=== PATIENT | female | born 1960 | race Caucasian/White ===

== ENCOUNTER 2018-05-23 07:40 | Day surgery (SDC) | payer BC, SELFPAY ==
--- NOTE | 2018-05-23 06:44 | W.COLOREPORT ---
Date of service: 05/23/18 Time of Service: 09:02 Colonoscopy Report Date of procedure: 05/23/18 Pre-op diagnosis general: Hx of polyps Post-op diagnosis procedure note: other (Polyps) Procedure: Colonoscopy with polypectomy by cold forceps Surgeon: Hawa Elise Anesthesia proc note operative: MAC (Hector Sloan CRNA / ASA 2) Estimated blood loss (mL): 3 Pathology: other (sigmoid polyp x1, rectal polyp x 3) Complications: None Disposition: same day Indications: Mrs. Jolene Abdullahi is a pleasant 58 year old female who was seen in the office for another colonoscopy. She was noted to have a adenomatous polyp in 2012. Risks, benefits, complications were reviewed with her and she wished to proceed. No guarantees were given or implied. Prep: Miralax/Dulcolax Procedure Start Time: : Procedure End Time: Retraction Time: 18 minutes Findings: 1. one sigmoid polyp 2. 3 rectal polyps Procedure Description: After informed consent was obtained the patient was taken to the procedure room and placed in a left decubitous position. Monitors were applied and a time out was done. The patients name, date of , procedure, allergies to medications and metal in their body was reviewed. The patient was then sedated. Once sedated and comfortable a rectal exam was done. External exam was normal. Internal exam revealed a normal sphincter tone and no palpable masses. The scope was then introduced and retro-flexed. No internal hemorrhoids were identified. The scope was then advanced to the cecum without difficulty. The TI and appendiceal orifice were identified. The prep was adequate. The scope was then slowly retracted over 18 minutes back into the rectum. One sigmoid polyp and 3 rectal polyps were removed with cold forceps. The scope was removed and the patient was woken up and taken back to Same day surgery in stable condition. The patient tolerated the procedure well and there were no immediate complications. Follow up: The patient should follow up in 5 years unless they develop changes in bowel habits or other new gastrointestinal complaints.
--- NOTE | 2018-05-23 06:46 | PDOC.DSDIS_ITS ---
Discharge Plan Disposition Patient Disposition: HOME Condition: Good Discharge Details Reason For Visit: SCREENING Attending Provider: Hawa Elise Primary Care Provider: Yandy Miller Home Meds and New Rx's Prescriptions: Continue dextroamphetamine-amphetamine [Adderall] 30 MG tablet 30 mg PO DAILY RF: 0 bupropion HCl 300 MG tablet extended release 24 hr 300 mg PO DAILY RF: 0 calcium carbonate [Calci-Chew] 500 MG tablet,chewable 2 tab PO DAILY RF: 0 Discharge Instructions Instructions: Colonoscopy (DC), Colorectal Polyps (DC) Additional Instructions: Findings: small polyps Follow up: 5 years New Medications: none Please call if you develop: Fevers >101.5 Nausea or Vomiting Abdominal pain that is not transient 1. Because there will be medication in your system for the next 24 hours, you may feel a little sleepy. Your coordination will be affected. Therefore: a. Do not drive or operate dangerous equipment for 24 hours. b. Do not drink alcohol beverages for 24 hours (not even beer). c. Plan to go home and rest for the day. 2. Generally there are no restrictions on your activity after a day or so has gone by, but you may feel a bit fatigued for a few days. 3 After you arrive home you may have a light meal and return to a normal diet as you can tolerate it without feeling sick to your stomach. 4. After surgery, you may feel pain or discomfort. This should be only transient , but if it persists please contact your doctor. 5. If there are any questions regarding the findings of your procedure, please feel free to contact your doctor. 6. If you are unable to contact your doctor with a problem, contact the hospital at [phone]. 7. Continue all your regular medications unless directed otherwise. I understand the above instructions and have no questions. Signature of Patient or Responsible Adult Escort Date/Time Name of Responsible Adult Escort Signature of Nurse Date/Time Activity:: Activity as Tolerated Diet:: As Tolerated Discharge Orders Discharge Orders: Discharge Order (Routine); Ordered 05/23/18 Ordered By: Hawa Elise DS: Diagnosis Discharge Diagnosis (1) Colon polyps: Status: Acute (2) S/P colonoscopy: Status: Acute
[2018-05-23 08:03] VITALS: BP 114/77; PULSE 80; RESP 18; TEMP 36.7; O2SAT 99
[2018-05-23] MEDS: Lactated Ringers 1,000 ML 80 ML IV (08:18)
--- NOTE | 2018-05-23 09:22 | BOWEL_PTH ---
PATIENT: Zakia Teran LOC: [facility] U#:[id number] AGE/SX: 58/F ROOM: RE05/23/[address]: Hawa Elise MD : [id number] BED: DIS: 05/23/2018 SPEC #: [id number] RECD: 05/23/18 12:47 STATUS: CHERIE REQ #: [id number] ROBERT: 05/23/18 09:[address]: Hawa Elise DEPT: Surgical Specimen RECD BY: Wanda Ross ENTERED: 05/23/18 12:48 SP TYPE: Bowel OTHR DR: Yandy Miller Tissues: 1 - BIOPSY BOWEL 2 - BIOPSY BOWEL Procedures: GROSS AND MICRO LEVEL 4 Comments: [id number]
[2018-05-23 10:00] VITALS: BP 102/56; PULSE 65; RESP 16; TEMP 36; O2SAT 98
== END 2018-05-23 10:42 | disposition home or self-care (01) ==
LOC: SUR 07:41
PROVIDERS: PCP Family Medicine; Visit Provider Surgery
PROC: 0DJD8ZZ Inspection of Lower Intestinal Tract, Via Natural or Artificial Opening Endoscopic (ICD-10-PCS; CPT 45378; principal; 2018-05-23 09:00)
DX: Z12.11 Encounter for screening for malignant neoplasm of colon (principal); K63.5 Polyp of colon; K62.1 Rectal polyp; Z86.010 Personal history of colon polyps; K21.9 Gastro-esophageal reflux disease without esophagitis
CPT/HCPCS: 45380; 88305

== ENCOUNTER 2018-10-31 02:41 | Outpatient (CLI) | payer BC, SELFPAY ==
[2018-10-31 09:00] LABS: Glucose 107 mg/dL (70-100)
== END 2018-10-31 03:01 ==
PROVIDERS: PCP Family Medicine; Visit Provider Family Medicine
DX: Z00.00 Encounter for general adult medical examination without abnormal findings (principal); Z13.1 Encounter for screening for diabetes mellitus
CPT/HCPCS: 36415; 82947

== ENCOUNTER 2018-12-25 15:58 | Emergency (ER) | payer BC, SELFPAY ==
[2018-12-25 16:00] VITALS: BP 120/89; PULSE 108; RESP 16; TEMP 36.2; O2SAT 98
--- NOTE | 2018-12-25 16:17 | W.ED.GENAD ---
Discharge Plan Disposition Patient Disposition: HOME Discharge Details Chief Complaint: EyeProblem Clinical Impression: Acute conjunctivitis, left eye Primary Care Provider: Yandy Miller ED Provider: Anival Parekh Home Meds and New Rx's Prescriptions: New levofloxacin 0.5 % drops See Rx Instructions .ROUTE .COMPLEX Qty: 5 RF: 0 Continued dextroamphetamine-amphetamine [Adderall] 30 MG tablet 30 mg PO DAILY RF: 0 bupropion HCl 300 MG tablet extended release 24 hr 300 mg PO DAILY RF: 0 Discharge Instructions Instructions: Conjunctivitis (ED) Additional Instructions: Please follow-up with an auth specialist. Return to the ER for any worsening or new concerning symptoms. Stand Alone Forms: Work Release Referrals: [facility] [Outside] Johnson Washington MD [ [facility] STAFF PHYSICIAN] - Medical Decision Making 58yo f here with irritation left eye progressive today. No trauma. No visual changes - patient has removed contact lens but noted no visual change prior to removal. Patient has had clear discharge. Recent exposure to grandson with cold symptoms. EOM intact and without pain. Pupils equal and reactive. Exam not consistent with acute angle glaucoma. Tetracaine applied and discomfort improved. I examined with fluorescein stain under santos lamp and no corneal abrasion. Suspect conjunctivitis. Plan to treat Levaquin eyedrop. Patient advised to not use contact until symptoms have completely resolved and seen by ophthalmology. Patient was encouraged to call her scroll machine operator or alternative today or tomorrow to arrange timely outpatient follow-up. Usual and customary discharge instructions were provided and reviewed with the patient. Patient verbalized understanding of discharge instructions. HPI General Mode of arrival: ambulatory. Date/Time Provider Initiated Documentation: 12/25/18 16:07. Limitations to Documentation: no limitations. Information obtained by: patient. History of Present Illness 58 year old F presents to the emergency department with the chief complaint of left eye discomfort, described as moderate, Quality is described as other (irritation), Patient reports no radiation. Patient started experiencing this hour(s) (8) and it has been constant. No relieving factors improve symptom(s), No exacerbating factors reported . Patient notes no other symptoms.. Patient did receive the following treatments prior to arrival, none Related Data Home Medications Medication Instructions Recorded Confirmed bupropion HCl 300 mg PO DAILY tab-cap 12/19/12 12/25/18 dextroamphetamine-amphetamine 30 mg PO DAILY tab-cap 12/19/12 12/25/18 [Adderall] levofloxacin See Rx Instructions .ROUTE 12/25/18 .COMPLEX #5 ml Previous Rx's Medication Instructions Recorded levofloxacin See Rx Instructions .ROUTE 12/25/18 .COMPLEX #5 ml Allergies Allergy/AdvReac Type Severity Reaction Status Date / Time ENVIRONMENTAL Allergy Mild Uncoded 05/23/18 08:01 General Stated Complaint: EyeProblem LITA: 4 Review of Systems Eyes Denies blurry vision, Denies change in vision, Reports eye discharge (clear), Denies floaters, Reports irritation, Denies itchy eyes, Denies loss of vision, Denies eye pain, Reports requires corrective lenses (left eye), Denies seeing flashes, Denies photophobia and Denies spots in vision ENT Denies sinus pain, Denies sinus pressure, Denies sore throat and Denies throat swelling Respiratory Denies cough Neurologic Denies loss of vision Allergic/Immunologic Denies itchy eyes and Denies throat swelling PFSH Medical History Colon polyps (Acute) Chronic constipation (Acute) Irritable bowel (Chronic) Adenomatous polyp of colon (Resolved 05/22/13) Anxiety Asthma Attention deficit hyperactivity disorder Depression GERD Gallbladder calculus Surgical History S/P colonoscopy (Acute ~05/23/18) H/O colonoscopy (Chronic 05/22/13) section Cholecystectomy Detatched retina/catarract Ligation of fallopian tube Nadya Fundoplication Open Carpal Tunnel release Family History Other Diabetes Hyperlipidemia Personal history of malignant neoplasm Social History Smoking/Tobacco Use Status: Never Alcohol Intake: current Alcohol Intake frequency: a few times a week Alcohol type: wine Drug use: Never Substance use type: does not use Do you feel safe at home: Yes Do you feel safe in your relationship?: Yes Exam Const General: cooperative, no acute distress and well developed Orientation: alert and awake Limitations: mental status not altered HENMT Head: normal to inspection and normocephalic General nose exam: external nose normal and no nasal discharge noted Face and sinus: face symmetric Mouth: moist mucous membranes Throat: posterior oropharynx normal, uvula midline and no uvular edema Eyes Alignment and Position: alignment normal Periorbital: periorbital findings normal Eyelids: eyelids normal Conjunctivae: conjunctival abnormality left conjunctival injection diffuse and discharge mucoid Cornea: corneas normal and fluorescein used Pupils: PERRL, normal by confrontation and accommodation normal EOM: EOM intact bilaterally Direct ophthalmoscopy: no papilledema and retinal abnormality on the left retinal scars; no retinal edema, no retinal hemorrhages, no retinal detachment and no retinal exudates Skin General skin exam: dry skin Rashes: no rashes (face) Other: warm Neuro General: alert and awake Course Vital Signs Temperature 36.2 C L 12/25/18 16:00 Pulse 108 H 12/25/18 16:00 Respiratory Rate 16 12/25/18 16:00 Blood Pressure 120/89 12/25/18 16:00 Pulse Oximetry 98 12/25/18 16:00 Temperature 36.2 C L 12/25/18 16:00 Temperature Source Skin 12/25/18 16:00 Pulse 108 H 12/25/18 16:00 Respiratory Rate 16 12/25/18 16:00 Respiratory Effort Non-Labored 12/25/18 16:05 Blood Pressure 120/89 12/25/18 16:00 Blood Pressure Position Sitting 12/25/18 16:00 Pulse Oximetry 98 12/25/18 16:00 Pain Level 8 12/25/18 16:00
--- NOTE | 2018-12-25 16:20 | ED.GENADUL_ITS ---
Discharge Plan Disposition Patient Disposition: HOME Discharge Details Chief Complaint: EyeProblem Clinical Impression: Acute conjunctivitis, left eye Primary Care Provider: Yandy Miller ED Provider: Anival Parekh Home Meds and New Rx's Prescriptions: New levofloxacin 0.5 % drops See Rx Instructions .ROUTE .COMPLEX Qty: 5 RF: 0 Continued dextroamphetamine-amphetamine [Adderall] 30 MG tablet 30 mg PO DAILY RF: 0 bupropion HCl 300 MG tablet extended release 24 hr 300 mg PO DAILY RF: 0 Discharge Instructions Instructions: Conjunctivitis (ED) Additional Instructions: Please follow-up with an retirement plan specialist. Return to the ER for any worsening or new concerning symptoms. Stand Alone Forms: Work Release Referrals: [facility] [Outside] Johnson Washington MD [ [facility] STAFF PHYSICIAN] - Medical Decision Making 58yo f here with irritation left eye progressive today. No trauma. No visual changes - patient has removed contact lens but noted no visual change prior to removal. Patient has had clear discharge. Recent exposure to grandson with cold symptoms. EOM intact and without pain. Pupils equal and reactive. Exam not consistent with acute angle glaucoma. Tetracaine applied and discomfort improved. I examined with fluorescein stain under santos lamp and no corneal abrasion. Suspect conjunctivitis. Plan to treat Levaquin eyedrop. Patient advised to not use contact until symptoms have completely resolved and seen by ophthalmology. Patient was encouraged to call her edger liner or alternative today or tomorrow to arrange timely outpatient follow-up. Usual and customary discharge instructions were provided and reviewed with the patient. Patient verbalized understanding of discharge instructions. HPI General Mode of arrival: ambulatory . Date/Time Provider Initiated Documentation: 12/25/18 16:07 . Limitations to Documentation: no limitations . Information obtained by: patient . History of Present Illness 58 year old F presents to the emergency department with the chief complaint of left eye discomfort, described as moderate, Quality is described as other (irritation), Patient reports no radiation. Patient started experiencing this hour(s) (8) and it has been constant. No relieving factors improve symptom(s), No exacerbating factors reported . Patient notes no other symptoms.. Patient did receive the following treatments prior to arrival, none Related Data Home Medications Medication Instructions Recorded Confirmed bupropion HCl 300 mg PO DAILY tab-cap 12/19/12 12/25/18 dextroamphetamine-amphetamine 30 mg PO DAILY tab-cap 12/19/12 12/25/18 [Adderall] levofloxacin See Rx Instructions .ROUTE 12/25/18 .COMPLEX #5 ml Previous Rx's Medication Instructions Recorded levofloxacin See Rx Instructions .ROUTE 12/25/18 .COMPLEX #5 ml Allergies Allergy/AdvReac Type Severity Reaction Status Date / Time ENVIRONMENTAL Allergy Mild Uncoded 05/23/18 08:01 General Stated Complaint: EyeProblem LITA: 4 Review of Systems Eyes Denies blurry vision, Denies change in vision, Reports eye discharge (clear), Denies floaters, Reports irritation, Denies itchy eyes, Denies loss of vision, Denies eye pain, Reports requires corrective lenses (left eye), Denies seeing flashes, Denies photophobia and Denies spots in vision ENT Denies sinus pain, Denies sinus pressure, Denies sore throat and Denies throat swelling Respiratory Denies cough Neurologic Denies loss of vision Allergic/Immunologic Denies itchy eyes and Denies throat swelling PFSH Medical History Colon polyps (Acute) Chronic constipation (Acute) Irritable bowel (Chronic) Adenomatous polyp of colon (Resolved 05/22/13) Anxiety Asthma Attention deficit hyperactivity disorder Depression GERD Gallbladder calculus Surgical History S/P colonoscopy (Acute ~05/23/18) H/O colonoscopy (Chronic 05/22/13) section Cholecystectomy Detatched retina/catarract Ligation of fallopian tube Nadya Fundoplication Open Carpal Tunnel release Family History Other Diabetes Hyperlipidemia Personal history of malignant neoplasm Social History Smoking/Tobacco Use Status: Never Alcohol Intake: current Alcohol Intake frequency: a few times a week Alcohol type: wine Drug use: Never Substance use type: does not use Do you feel safe at home: Yes Do you feel safe in your relationship?: Yes Exam Const General: cooperative, no acute distress and well developed Orientation: alert and awake Limitations: mental status not altered HENMT Head: normal to inspection and normocephalic General nose exam: external nose normal and no nasal discharge noted Face and sinus: face symmetric Mouth: moist mucous membranes Throat: posterior oropharynx normal, uvula midline and no uvular edema Eyes Alignment and Position: alignment normal Periorbital: periorbital findings normal Eyelids: eyelids normal Conjunctivae: conjunctival abnormality left conjunctival injection diffuse and discharge mucoid Cornea: corneas normal and fluorescein used Pupils: PERRL, normal by confrontation and accommodation normal EOM: EOM intact bilaterally Direct ophthalmoscopy: no papilledema and retinal abnormality on the left retinal scars; no retinal edema, no retinal hemorrhages, no retinal detachment and no retinal exudates Skin General skin exam: dry skin Rashes: no rashes (face) Other: warm Neuro General: alert and awake Course Vital Signs Temperature 36.2 C L 12/25/18 16:00 Pulse 108 H 12/25/18 16:00 Respiratory Rate 16 12/25/18 16:00 Blood Pressure 120/89 12/25/18 16:00 Pulse Oximetry 98 12/25/18 16:00 Temperature 36.2 C L 12/25/18 16:00 Temperature Source Skin 12/25/18 16:00 Pulse 108 H 12/25/18 16:00 Respiratory Rate 16 12/25/18 16:00 Respiratory Effort Non-Labored 12/25/18 16:05 Blood Pressure 120/89 12/25/18 16:00 Blood Pressure Position Sitting 12/25/18 16:00 Pulse Oximetry 98 12/25/18 16:00 Pain Level 8 12/25/18 16:00
[2018-12-25] MEDS: Fluorescein STRIPS 100/BOX 1 MG OP (16:39)
[2018-12-25] MEDS: Tetracaine 0.5% 4 ML BTL OP (16:40)
== END 2018-12-25 16:41 | disposition home or self-care (01) ==
PROVIDERS: Emergency Provider Student in an Organized Health Care Education/Training Program; PCP Family Medicine
DX: H10.32 Unspecified acute conjunctivitis, left eye (principal)
CPT/HCPCS: 99283

== ENCOUNTER 2019-01-02 05:32 | Emergency (ER) | payer BC, SELFPAY ==
[2019-01-02 05:33] VITALS: BP 146/76; PULSE 105; RESP 18; TEMP 36.6; O2SAT 98
--- NOTE | 2019-01-02 05:47 | W.ED.GENAD ---
Discharge Plan Disposition Patient Disposition: HOME Condition: Good Discharge Details Chief Complaint: EyeProblem Clinical Impression: Conjunctivitis Primary Care Provider: Yandy Miller ED Provider: Roly Toussaint Home Meds and New Rx's Prescriptions: No Action dextroamphetamine-amphetamine [Adderall] 30 MG tablet 30 mg PO DAILY RF: 0 bupropion HCl 300 MG tablet extended release 24 hr 300 mg PO DAILY RF: 0 Discharge Instructions Instructions: Conjunctivitis (ED) Additional Instructions: Your symptoms appear consistent with bilateral viral conjunctivitis or chemosis however the vision changes atypical. We recommend urgent follow-up with your [facility] as soon as possible, or follow-up with Dr. Leon's office today. We will be contacting Dr. Leon's office to set up a prompt appointment this morning. You will be contacted with his appointment time. In the meantime I recommend application of artificial tears 2-3 times per day. Frequent handwashing, and avoid using your contact lens. If you notice any worsening of your symptoms, or any new symptoms such as vomiting, diarrhea, fever, chills, shortness of breath, chest pain, numbness, weakness, or fainting , please return immediately to the emergency department for reevaluation. Please follow up with your primary care provider as soon as possible for reassessment and reevaluation. As always, it was a pleasure participating in your medical care today. Referrals: [facility] [OTHER] - Discharge Data Discharge Date/Time-TO BE ENTERED AT DEPARTURE: 01/02/19 05:54 Medical Decision Making This is a 58-year-old female who presents with bilateral conjunctivitis that started this morning when she woke up. She denies any recent sick contacts, trauma, new drops, or other abnormalities. She did place a new contact in her left eye 3 to 4 days ago, however she has had no issues with this new contacts since today. She denies any symptoms of pain, irritation, pressure, or achiness. She did have conjunctivitis 1 week ago, this improved over few days with saturnino quinolone drops, or spontaneously. She was seen by optometry, who felt that it was most likely viral conjunctivitis on reassessment. Today signs and symptoms appear clinically consistent with viral conjunctivitis versus chemosis. She has no historical component to suggest chemosis though. No clinical evidence of acute angle-closure glaucoma. Exam demonstrates bilateral conjunctivitis with notable watery discharge, no evidence of purulent discharge. At this time with no evidence of bacterial conjunctivitis we will hold off on antibiotics. Recommend artificial tears 2-3 times per day. We will contact Dr. Leon's office for prompt follow-up today. Patient will be contacted with an appointment time. I have extensively reviewed the treatment plan and discharge instructions with the patient. I have addressed all patient concerns at this time. The patient was made aware of what symptoms to monitor for that would warrant a return to the emergency department. Discussed the plan with the patient, they demonstrate verbal understanding and agreement with our assessment and plan at this time. HPI General Date/Time Provider Initiated Documentation: 01/02/19 05:46. HPI Narrative: This is a 58-year-old female with a past medical history of a retinal detachment in left eye, and a contact lens use in that eye. She presents today for feeling a film over both her eyes this morning at 3 AM when she woke up. She denies any irritation in her eyes, pain in her eyes, gritty sensation, new eyedrops, change in facial washes, or changes in contacts. Of note 1 week ago she was seen with similar symptoms. She was started on Cipro drops, her symptoms resolved shortly thereafter. 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 She had stopped wearing her contact lenses at that time, and then started a new contact lens 3 days ago. She had no problems until this morning when she awoke. She does admit to a sensation of a film over her vision, which she states is atypical for her. She denies any eye pain, pain with movement of her eye, headache, trauma, or other complaints. She denies any other modifying factors. She denies any other sick contacts with similar symptoms. Related Data Home Medications Medication Instructions Recorded Confirmed bupropion HCl 300 mg PO DAILY tab-cap 12/19/12 01/02/19 dextroamphetamine-amphetamine 30 mg PO DAILY tab-cap 12/19/12 01/02/19 [Adderall] Allergies Allergy/AdvReac Type Severity Reaction Status Date / Time ENVIRONMENTAL Allergy Mild Uncoded 01/02/19 05:35 General Stated Complaint: EyeProblem LITA: 4 Review of Systems Review of Systems All systems reviewed & are unremarkable except as noted in HPI and below PFSH Medical History Colon polyps (Acute) Chronic constipation (Acute) Irritable bowel (Chronic) Adenomatous polyp of colon (Resolved 05/22/13) Anxiety Asthma Attention deficit hyperactivity disorder Depression GERD Gallbladder calculus Surgical History S/P colonoscopy (Acute ~05/23/18) H/O colonoscopy (Chronic 05/22/13) section Cholecystectomy Detatched retina/catarract Ligation of fallopian tube Nadya Fundoplication Open Carpal Tunnel release Family History Other Diabetes Hyperlipidemia Personal history of malignant neoplasm Social History Smoking/Tobacco Use Status: Never Alcohol Intake: current Alcohol Intake frequency: a few times a week Alcohol type: wine Drug use: Never Substance use type: does not use Do you feel safe at home: Yes Do you feel safe in your relationship?: Yes Exam Narrative Exam Narrative: 1.Const: Well-nourished, Well-developed, appearing stated age 2.Eyes: Bilateral eyes: EOMI, PERRL, Peripheral vision intact. No nystagmus. Fundoscopic exam shows normal optic discs and normal vasculature. No evidence of retinal hemorrhage. no external signs of preseptal cellulitis, no redness around the eye, no proptosis. No hyphema, no signs of trauma around the eye, no periorbital emphysema. Bilateral conjunctivitis and conjunctival injection. No conjunctival hemorrhage. Vision in the left eye is worse than 2069 which she states is her baseline, vision in the right eye is 20/70 which she states is atypical. No pain with movement of the eye. Notable runny watery discharge, no evidence of purulent crusty discharge. 3.ENT: Atraumatic external nose and ears. Moist MM. Neck: Symmetric, trachea midline, No thyromegaly. 4.CVS: +S1/S2, No murmurs or gallops. Peripheral pulses 2+ and equal in all extremities. Brisk capillary refill in all extremities. 5.RESP: Unlabored respiratory effort. Clear to auscultation bilaterally. No wheezes rales or rhonchi 6.GI: Soft, Nontender/Nondistended, No hepatosplenomegaly. No guarding or rebound. 7.MSK: Normocephalic/Atraumatic, Extremities w/o deformity or ttp No cyanosis or clubbing, Normal movement of all extremities 8.Skin: Warm, Dry. No rashes or lesions. 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 Sensation grossly intact, no focal neurologic deficits. 10.Psych: (AAO) x3. Appropriate mood and affect Course Vital Signs Temperature 36.6 C 01/02/19 05:33 Pulse 105 H 01/02/19 05:33 Respiratory Rate 18 01/02/19 05:33 Blood Pressure 146/76 H 01/02/19 05:33 Pulse Oximetry 98 01/02/19 05:33 Temperature 36.6 C 01/02/19 05:33 Temperature Source Skin 01/02/19 05:33 Pulse 105 H 01/02/19 05:33 Respiratory Rate 18 01/02/19 05:33 Respiratory Effort Non-Labored 01/02/19 05:36 Blood Pressure 146/76 H 01/02/19 05:33 Blood Pressure Position Sitting 01/02/19 05:33 Pulse Oximetry 98 01/02/19 05:33 Oxygen Delivery Method Room Air 01/02/19 05:33 Oxygen Flow Rate 0 01/02/19 05:33 Pain Level 0 01/02/19 05:33
--- NOTE | 2019-01-02 08:16 | NUR.NOTE ---
Nursing Note: [facility] will see the patient today, either in [facility] or [place]. Pratima Forbes Fax [phone]
== END 2019-01-02 05:54 | disposition home or self-care (01) ==
PROVIDERS: Emergency Provider Student in an Organized Health Care Education/Training Program; PCP Family Medicine
DX: H10.33 Unspecified acute conjunctivitis, bilateral (principal)
CPT/HCPCS: 99282

== ENCOUNTER 2019-03-06 00:13 | Outpatient (CLI) | payer BC, SELFPAY ==
--- NOTE | 2019-03-06 11:45 | DI.MAMMO_ITS ---
SYMPTOM/DIAGNOSIS: SCREENING, Z12.31 MAMMOGRAMS: Mammograms were interpreted according to the usual protocol including computer analysis with CAD system, tomosynthesis and C view imaging. The breasts are of moderate density with fairly symmetrical distribution of fibroglandular tissue. No dominant mass or clumped microcalcification is identified in either breast. The current examination is compared with previous examinations including 12/2016 and there has been no gross interval change in appearance in comparison with the previous studies. CONCLUSION: No specific evidence of malignancy at this time. Routine screening examinations are suggested at yearly intervals due to the family history of breast carcinoma. Category 1. Breast density, Category B. MQSA ASSESSMENT OF FINDINGS: Negative. Category 1. Patient will receive a letter notifying them of these results. BI-RADS category B. There are scattered areas of fibroglandular density.
== END 2019-03-06 00:33 ==
PROVIDERS: PCP Family Medicine; Visit Provider Family Medicine
DX: Z12.31 Encounter for screening mammogram for malignant neoplasm of breast (principal); Z80.3 Family history of malignant neoplasm of breast
CPT/HCPCS: 77063; 77067

== ENCOUNTER 2019-11-27 08:38 | Outpatient (REF) | payer BC, SELFPAY ==
[2019-11-27 15:36] LABS: Hemoglobin A1C 5.5 % (3.8-5.6)
[2019-11-27 15:39] LABS: Glucose 115 mg/dL (74-106)
== END 2019-11-27 08:58 ==
LOC: NCHCN 08:38
PROVIDERS: PCP Family Medicine; Visit Provider Family Medicine
DX: R73.03 Prediabetes (principal)
CPT/HCPCS: 82947; 83036

== ENCOUNTER 2020-04-25 03:03 | Outpatient (CLI) | payer OTHER, SELFPAY ==
--- NOTE | 2020-04-25 | DI.MAMMO_ITS ---
EXAM: MG MAMMO SCREENING CLINICAL HISTORY: SCREENING,Z12.31 TECHNIQUE: Mammograms were interpreted according to the usual protocol including computer analysis w [employer] CAD system, tomosynthesis and C-view imaging. COMPARISON: FINDINGS: The breasts are of moderate density with fairly symmetrical distribution of fibroglandular tissue. N o dominant mass or clumped microcalcification is identified in either breast. The current examinatio n is compared with previous examinations including February 2019 and there has been no gross interva l change in appearance in comparison with the prior studies. IMPRESSION: No specific evidence of malignancy at this time. Routine screening examinations are suggested at yea rly intervals in this age group according to the ACS ACR guidelines. BI-RADS Category 1 - Negative Breast Density - Category B - Scattered areas of fibroglandular density
== END 2020-04-25 03:23 ==
PROVIDERS: PCP Family Medicine; Visit Provider Family Medicine
DX: Z12.31 Encounter for screening mammogram for malignant neoplasm of breast (principal)
CPT/HCPCS: 77063; 77067

== ENCOUNTER 2020-07-23 17:39 | Outpatient (REF) | payer OTHER, SELFPAY ==
[2020-07-23 19:50] LABS: HCT 42.9 % (36.0-46.0); HGB 14.1 g/dL (11.2-15.7); MCH 29.5 pg (27.0-33.0); MCHC 32.9 % (32.0-36.0); MCV 89.7 fL (80-95); MPV 11.4 fL (8.0-11.0); Platelet Count 223 10^3/uL (130-400); RBC 4.78 10^6/uL (3.93-5.22); RDW 13.2 % (11.7-14.6); RDW-SD 43.4 fL; WBC 6.28 10^3/uL (4.4-10.8)
[2020-07-23 20:54] LABS: ALT 29 U/L (14-59); AST 17 U/L (15-37); Albumin 4.4 g/dL (3.4-5.0); Alkaline Phosphatase 89 U/L (46-116); Anion Gap 10.5 mmol/L (3-11); BUN 23 mg/dL (7-18); Bilirubin, Total 0.4 mg/dL (0.2-1.0); CO2 26.5 mmol/L (21.0-32.0); Calcium 9.6 mg/dL (8.5-10.1); Chloride 102 mmol/L (98-107); Folate 11.6 ng/mL (8.6-20.0); Glucose 97 mg/dL (74-106); Potassium 4.2 mmol/L (3.5-5.1); Sodium 139 mmol/L (136-145); TSH (W/Ref FT4) 1.04 uIU/mL (0.36-3.74); Total Protein 7.1 g/dL (6.4-8.2); Vitamin B12 307 pg/mL (193-986)
== END 2020-07-23 17:59 ==
LOC: NCHCN 17:39
PROVIDERS: PCP Family Medicine; Visit Provider Family Medicine
DX: R20.2 Paresthesia of skin (principal)
CPT/HCPCS: 80053; 85027; 82607; 82746; 84443

== ENCOUNTER 2020-12-12 16:07 | Outpatient (REF) | payer OTHER, SELFPAY ==
[2020-12-12 19:28] LABS: ESR 5 mm/hr (0-30)
[2020-12-12 19:32] LABS: Calculated LDL 136 mg/dL (<100); Cholesterol 235 mg/dL (<200); HDL Cholesterol 93 mg/dL (40-60); Triglyceride 32 mg/dL (<150)
[2020-12-12 20:01] LABS: C-Reactive Protein 0.05 mg/dL (0.0-0.3); Creatine Kinase 114 U/L (26-192)
== END 2020-12-12 16:08 | disposition home or self-care (01) ==
LOC: NCHCN 16:07
PROVIDERS: PCP Family Medicine; Visit Provider Family Medicine
DX: M79.10 Myalgia, unspecified site (principal); R20.2 Paresthesia of skin; E78.89 Other lipoprotein metabolism disorders
CPT/HCPCS: 80061; 82550; 85652; 86140

== ENCOUNTER 2021-05-01 02:30 | Outpatient (CLI) | payer OTHER, SELFPAY ==
--- NOTE | 2021-05-01 08:00 | DI.MAMMO_ITS ---
Exam(s) MAMMO SCREENING EXAM: MAMMO SCREENING CLINICAL HISTORY: SCREENING FOR BREAST CANCER Z12.31 TECHNIQUE: Mammograms were interpreted according to the usual protocol including computer analysis w [employer] CAD system, tomosynthesis and C-view imaging. COMPARISON: 2012 through 2019 FINDINGS: The breasts are composed of scattered fibroglandular densities, Breast Density category B. No suspicious masses or suspicious microcalcifications are seen. No skin thickening or abnormal axillary lymph nodes are seen. There has been no significant change from prior exams. IMPRESSION: BI-RADS Category 1, Negative mammogram Yearly screening mammography is recommended. Breast Density - Category B, scattered fibroglandular densities. A negative radiographic report should not delay biopsy if a dominant or clinically suspicious mass is present. Up to ten percent of cancers are not identified on mammography. A negative report may reinforce clinical impression. Adenosis and dense breasts may obscure an underlying neoplasm. False positive reports average 6 to 10%. Patient will receive a letter notifying them of these results.
== END 2021-05-01 02:50 ==
PROVIDERS: PCP Family Medicine; Visit Provider Family Medicine
DX: Z12.31 Encounter for screening mammogram for malignant neoplasm of breast (principal)
CPT/HCPCS: 77063; 77067

== ENCOUNTER 2021-12-08 14:46 | Outpatient (CLI) | payer OTHER, SELFPAY ==
--- NOTE | 2021-12-08 14:30 | DI.RAD_ITS ---
Exam(s) XR SHOULDER LT COMPLETE 2+V EXAM: XR SHOULDER LT COMPLETE 2+V CLINICAL HISTORY: months of pain. TECHNIQUE: 2D digital imaging was performed. COMPARISON: No exams were available for comparison FINDINGS: No evidence of fracture or dislocation. No abnormal soft tissue calcifications For, there is advanced narrowing of the glenohumeral joint evident. A no prominent osteophytes. Sub acromial space is not significantly diminished and the AC joint appears unremarkable as does the ipsi lateral visualized clavicle. Bone density normal. No osseous lesions IMPRESSION: Osteoarthritic narrowing of the glenohumeral joint evident. DATA REPOSITORY: RADIATION DOSE DELIVERED:
== END 2021-12-08 14:47 | disposition home or self-care (01) ==
LOC: DIORS 14:47
PROVIDERS: PCP Family Medicine; Referring Provider Family Medicine; Visit Provider Physician Assistant Surgical
DX: M25.512 Pain in left shoulder (principal)
CPT/HCPCS: 73030

== ENCOUNTER 2022-03-19 12:13 | Outpatient (REF) | payer OTHER, SELFPAY ==
--- NOTE | 2022-03-19 08:00 | PAPFT_PTH ---
PATIENT: Zakia Teran LOC: [facility]#:[id number] AGE/SX: 61/F ROOM: RE03/19/[address]: Yandy Miller : 1960 BED: DIS: 03/19/2022 SPEC #: [id number] RECD: 03/19/22 18:32 STATUS: CHERIE REQ #: [id number] ROBERT: 03/19/22 08:[address]: Yandy Miller DEPT: [facility] Cytology RECD BY: Wanda Ross Tissues: 1 - CX/ENDOCX FOR PAP SMEARS Procedures: PAP THIN PREP/UVM Screening HPV DNA PROBE Comments: [id number]
== END 2022-03-19 12:14 | disposition home or self-care (01) ==
LOC: NCHCN 12:13
PROVIDERS: PCP Family Medicine; Visit Provider Family Medicine
DX: Z12.4 Encounter for screening for malignant neoplasm of cervix (principal); Z11.51 Encounter for screening for human papillomavirus (HPV)
CPT/HCPCS: 88142; 87624

== ENCOUNTER → 2022-05-05 02:10 | Outpatient (CLI) | payer OTHER, SELFPAY ==
--- NOTE | 2022-05-05 | DI.MAMMO_ITS ---
Exam(s) MAMMO SCREENING EXAM: MAMMO SCREENING CLINICAL HISTORY: SCREENING, Z12.31 TECHNIQUE: Bilateral full field digital CC and MLO mammographic images were obtained with 3D tomosyn thesis and utilizing computer aided detection (CAD). COMPARISON: Available for comparison. FINDINGS: Masses/Architectural Distortion: None seen. Microcalcifications: No suspicious pleomorphic-type are seen. Skin Thickening/Nipple Retraction: None. IMPRESSION: 1. No significant interval change with no specific features of malignancy noted. 2. Unless there is more urgent need, screening mammography is recommended, as per [place] [employer] guidelines. BI-RADS Category 1 - Negative Breast Density - Category B - Scattered areas of fibroglandular density Breast density category C or D implies that the patient has dense breast tissue. Dense breast tissue is very common and is not abnormal but dense breast tissue can make it harder to find cancer on a ma mmogram. Also, dense breast tissue may increase their breast cancer risk. This information about the result of the mammogram report was provided to the patient to raise their awareness. Use this report when you speak with the patient about their risks for breast cancer, which includes their family hist ory. At that time, you may recommend for more screening tests (Ultrasound or MRI) as they might be us eful based on their risk. A negative radiographic report should not delay biopsy if a dominant or clinically suspicious mass is present. Up to ten percent of cancers are not identified on mammography. A negative report may reinforce clinical impression. Adenosis and dense breasts may obscure an underlying neoplasm. False positive reports average 6 to 10%. Patient will receive a letter notifying them of these results.
== END ==
PROVIDERS: PCP Family Medicine; Visit Provider Family Medicine
DX: Z12.31 Encounter for screening mammogram for malignant neoplasm of breast (principal); R92.8 Other abnormal and inconclusive findings on diagnostic imaging of breast
CPT/HCPCS: 77063; 77067

== ENCOUNTER 2022-07-15 03:25 | Outpatient (CLI) | payer BC, SELFPAY ==
--- NOTE | 2022-07-15 08:15 | DI.RAD_ITS ---
Exam(s) RF JOINT INJECTION FLUORO GUID EXAM: RF JOINT INJECTION FLUORO GUID CLINICAL HISTORY: PAIN,arthritis, m75.42,m75.52,m19.012,impingement syndrome,fluoro guided in TECHNIQUE: Fluoroscopy provided. Radiologist not present. CONTRAST MATERIAL: None COMPARISON: No exams were available for comparison FINDINGS: Fluoroscopy was provided for Dr. Enciso during therapeutic shoulder injection.. Please refer to the procedure report for complete details. Cumulative Dose: todd Rich=5.35 mGy IMPRESSION: RADIATION DOSE DELIVERED:
[2022-07-15] MEDS: Omnipaque 300 MG/ML 10 ML BTL IJ (15:02)
[2022-07-15] MEDS: Bupivacaine 0.5% Pres-Free 10 ML VIAL IJ (15:03)
--- NOTE | 2022-07-16 07:33 | W.PROCNOTE ---
Date of service: 07/15/22 Time of Service: 15:00 Procedure Note Date of procedure: 07/15/22 Procedure: Left Shoulder Injection Surgeon/Proceduralist/Physician: Jace Enciso Procedure Diagnosis: Left Shoulder Arthritis Procedure Indications: Zakia has had persistent pain of the LEFT shoulder. Noninvasive measures have been tried. To serve as both diagnostic and therapeutic, an injection under fluoroscopy was recommended. I had discussed the risks of the procedure and the patient elected to proceed. Procedure Description: Zakia was greeted in the flouroscopy room. The correct side was identified and the consent was reviewed with the patient and signed. The patient was then placed in the supine position on the fluoroscopy table. The LEFT shoulder was then prepped with Chloraprep. The anterior injection starting point was identiifed by bony landmarks and fluoroscopy. The skin and soft tissue in the tract of the injection was anesthetized with 1% Lidocaine. A spinal needle was then inserted deep into the shoulder joint at the level of the recess between the glenoid and superior humeral head. A small amount of Omnipaque solution was injected to confirm intraarticular placement. Once confirmed, the shoulder was injected with 5cc of 0.5% Bupivicaine and 80mg of Depo-Medrol. A bandaid was placed on the injection site. The patient tolerated the procedure well and noted improvement in pre-injection pain.
== END 2022-07-15 03:45 ==
PROVIDERS: PCP Family Medicine; Visit Provider Student in an Organized Health Care Education/Training Program
DX: M19.012 Primary osteoarthritis, left shoulder (principal); M75.42 Impingement syndrome of left shoulder; M75.52 Bursitis of left shoulder
CPT/HCPCS: 20610; 77002

== ENCOUNTER → 2023-05-06 02:53 | Outpatient (CLI) | payer BC, SELFPAY ==
--- NOTE | 2023-05-06 | DI.MAMMO_ITS ---
Exam(s) MAMMO SCREENING EXAM: MAMMO SCREENING CLINICAL HISTORY: SCREENING, Z12.31 TECHNIQUE: Mammograms were interpreted according to the usual protocol including computer analysis w [employer] CAD system, tomosynthesis and C-view imaging. COMPARISON: 2013 through 2021 FINDINGS: The breasts are composed of scattered fibroglandular densities, Breast Density category B. No suspicious masses or suspicious microcalcifications are seen. No skin thickening or abnormal axillary lymph nodes are seen. There has been no significant change from prior exams. IMPRESSION: BI-RADS Category 1, Negative mammogram Yearly screening mammography is recommended. Breast Density - Category B, scattered fibroglandular densities. A negative radiographic report should not delay biopsy if a dominant or clinically suspicious mass is present. Up to ten percent of cancers are not identified on mammography. A negative report may reinforce clinical impression. Adenosis and dense breasts may obscure an underlying neoplasm. False positive reports average 6 to 10%. Patient will receive a letter notifying them of these results.
== END ==
PROVIDERS: PCP Family Medicine; Visit Provider Family Medicine
DX: Z12.31 Encounter for screening mammogram for malignant neoplasm of breast (principal)
CPT/HCPCS: 77063; 77067

== ENCOUNTER 2023-08-20 17:02 | Outpatient (REF) | payer MEDICARE, OTHER, SELFPAY ==
[2023-08-19 15:49] LABS: Glucose 98 mg/dL (74-106)
== END 2023-08-20 17:03 | disposition home or self-care (01) ==
LOC: NCHCN 17:02
PROVIDERS: PCP Family Medicine; Visit Provider Family Medicine
DX: E66.3 Overweight (principal)
CPT/HCPCS: 82947

== ENCOUNTER → 2023-09-01 02:17 | Outpatient (CLI) | payer MEDICARE, SELFPAY ==
--- NOTE | 2023-09-01 | DI.DEXA_ITS ---
Exam(s) XR DEXA BONE DENSITY W/WO JIN EXAM: XR DEXA BONE DENSITY W/WO JIN CLINICAL HISTORY: SCREENING FOR OSTEOPOROSIS, Z78.0, ASYMPTOMATIC MENOPAUSAL STATE TECHNIQUE: [employer] C densitometer analysis of left hip, lumbar spine and left forearm. Lat eral survey image of the thoracic and lumbar spine. COMPARISON: No exams were available for comparison FINDINGS: Lateral view of the thoracic and lumbar spine shows no evidence of compression fractures. Bone mineral density measurements of the lumbar spine correspond to a total T-score of -1.6, in the o steopenic range. Bone mineral density measurements of the left hip correspond to a total T-score of -2.2. The femora l neck T-score is -1.7, in the osteopenic range.. Theleft forearm bone mineral density measurements correspond to a T-score of the distal 3rd of -2.8, in the osteoporotic range. . IMPRESSION: Osteopenia of the spine and forearm. Osteoporosis of the forearm.
== END ==
PROVIDERS: PCP Family Medicine; Visit Provider Family Medicine
DX: Z78.0 Asymptomatic menopausal state (principal); Z13.820 Encounter for screening for osteoporosis; M81.0 Age-related osteoporosis without current pathological fracture
CPT/HCPCS: 77080

== ENCOUNTER 2024-05-31 01:57 | Outpatient (CLI) | payer MEDICARE, OTHER, SELFPAY ==
--- NOTE | 2024-05-31 | DI.MAMMO_ITS ---
Exam(s) MAMMO SCREENING EXAM: MAMMO SCREENING CLINICAL HISTORY: Screening, Z12.31 TECHNIQUE: Mammograms were interpreted according to the usual protocol including computer analysis w [employer] CAD system, tomosynthesis and C-view imaging. COMPARISON: 2014 through 2022 FINDINGS: The breasts are composed of scattered fibroglandular densities, Breast Density category B. No suspicious masses or suspicious microcalcifications are seen. No skin thickening or abnormal axillary lymph nodes are seen. There has been no significant change from prior exams. IMPRESSION: BI-RADS Category 1, Negative mammogram Yearly screening mammography is recommended. Breast Density - Category B, scattered fibroglandular densities. A negative radiographic report should not delay biopsy if a dominant or clinically suspicious mass is present. Up to ten percent of cancers are not identified on mammography. A negative report may reinforce clinical impression. Adenosis and dense breasts may obscure an underlying neoplasm. False positive reports average 6 to 10%. Patient will receive a letter notifying them of these results.
== END 2024-05-31 02:17 ==
PROVIDERS: PCP Family Medicine; Visit Provider Family Medicine
DX: Z12.31 Encounter for screening mammogram for malignant neoplasm of breast (principal); R92.323 Mammographic fibroglandular density, bilateral breasts
CPT/HCPCS: 77063; 77067

== ENCOUNTER → 2025-06-10 00:13 | Outpatient (CLI) | payer MEDICARE, OTHER, SELFPAY ==
--- NOTE | 2025-06-10 | DI.MAMMO_ITS ---
Exam(s) MAMMO SCREENING EXAM: MAMMO SCREENING CLINICAL HISTORY: SCREENING, Z12.31 TECHNIQUE: Bilateral full field digital CC and MLO mammographic images were obtained with 3D tomosynthesis and utilizing computer aided detection (CAD). COMPARISON: Comparison is made with prior examinations. FINDINGS: Masses/Architectural Distortion: No suspicious masses or areas of architectural distortion are present. Microcalcifications: No suspicious pleomorphic-type are seen. Skin Thickening/Nipple Retraction: None. IMPRESSION: 1. No significant interval change with no specific features of malignancy noted. 2. Unless there is more urgent need, screening mammography is recommended, as per [place] [employer] guidelines. BI-RADS Category 1 - Negative Breast Density - Category B - There are scattered areas of fibroglandular density. Breast density Category C or D implies that the patient has dense breast tissue. Dense breast tissue can make it harder to find cancer on a mammogram. Dense breast tissue is also associated with an increased risk of breast cancer. This information about the result of the mammogram report was provided to the patient to raise their awareness. Use this report when you speak with the patient about their risks for breast cancer, which includes their family history. At that time, you may recommend additional screening tests (Ultrasound or MRI) as these tests may add significant information. A negative radiographic report should not delay biopsy if a dominant or clinically suspicious mass is present. Up to ten percent of cancers are not identified on mammography. A negative report may reinforce clinical impression. Adenosis and dense breasts may obscure an underlying neoplasm. False positive reports average 6 to 10%. Patient will receive a letter notifying them of these results.
== END ==
LOC: DI 00:13
PROVIDERS: PCP Family Medicine; Visit Provider Family Medicine
DX: Z12.31 Encounter for screening mammogram for malignant neoplasm of breast (principal)
CPT/HCPCS: 77063; 77067